=== PATIENT | female | born 1950 | race Caucasian/White ===

== ENCOUNTER → 2017-07-01 | Outpatient (CLI) | payer OTHER ==
[2017-07-01 08:01] LABS: BASOPHILS # (AUTO) 0.1 10^3/uL (0.0-0.1); BASOPHILS % (AUTO) 1 % (0-10); EOSINOPHILS # (AUTO) 0.2 10^3/uL (0.0-0.3); EOSINOPHILS % (AUTO) 2 % (0-10); LYMPHOCYTES # (AUTO) 2.3 X 10^3 (1.0-4.0); LYMPHOCYTES % (AUTO) 32 % (12-44); MEAN CORPUSCULAR HEMOGLOBIN 31 PG (25-34); MEAN CORPUSCULAR HGB CONC 34 G/DL (32-36); MEAN CORPUSCULAR VOLUME 91 FL (80-99); MEAN PLATELET VOLUME 9.8 FL (7.4-10.4); MONOCYTES # (AUTO) 0.5 X 10^3 (0.0-1.0); MONOCYTES % (AUTO) 6 % (0-12); NEUTROPHILS # (AUTO) 4.2 X 10^3 (1.8-7.8); NEUTROPHILS % (AUTO) 59 % (42-75); PLATELET COUNT 213 10^3/uL (130-400); RED BLOOD COUNT 4.89 10^6/uL (4.35-5.85); RED CELL DISTRIBUTION WIDTH 12.5 % (10.0-14.5); WHITE BLOOD COUNT 7.2 10^3/uL (4.3-11.0)
[2017-07-01 08:34] LABS: ALANINE AMINOTRANSFERASE 17 U/L (0-55); ALBUMIN 4.3 GM/DL (3.2-4.5); ANION GAP 11 MMOL/L (5-14); ASPARTATE AMINO TRANSFERASE 22 U/L (5-34); BILIRUBIN,TOTAL 1.9 MG/DL (0.1-1.0); BLOOD UREA NITROGEN 13 MG/DL (7-18); BUN/CREATININE RATIO 17; CALCIUM 9.5 MG/DL (8.5-10.1); CARBON DIOXIDE 24 MMOL/L (21-32); CHLORIDE 106 MMOL/L (98-107); CREATININE SERUM 0.78 MG/DL (0.60-1.30); GFR ESTIMATED > 60; GLUCOSE 123 MG/DL (70-105); POTASSIUM 4.2 MMOL/L (3.6-5.0); SODIUM 141 MMOL/L (135-145); TOTAL PROTEIN 7.7 GM/DL (6.4-8.2); TRIGLYCERIDES 140 MG/DL (<150)
[2017-07-01 08:35] LABS: CHOLESTEROL 194 MG/DL (< 200); DIRECT LDL 159 MG/DL (1-129); VLDL CHOLESTEROL 28 MG/DL (5-40)
[2017-07-01 08:56] LABS: THYROID STIMULATING HORMONE 1.96 UIU/ML (0.35-4.94)
== END ==
LOC: LAB 07:39
PROVIDERS: ATTEND Family Medicine
DX: I10 Essential (primary) hypertension (principal); R53.83 Other fatigue; F41.9 Anxiety disorder, unspecified
CPT/HCPCS: 36415; 80053; 80061; 84443; 85025

== ENCOUNTER 2019-09-18 05:36 | Emergency (ER) | payer OTHER ==
[~2019-09-18] VITALS: Ht 162 cm; Wt 79.0 kg
[2019-09-18] MEDS ORDERED: RT-ALBUTEROL/IPRATROPIUM 3 ML (DUONEB) VIAL INH ONE (06:30)
--- NOTE | 2019-09-18 06:38 | ED Cough/URI ---
General Chief Complaint: Cough/Cold/Flu Symptoms Stated Complaint: COUGH Nursing Triage Note: PT HAS HAD A PERSISTENT COUGH FOR TWO WEEKS, PT STATES IT IS OCCASIONALLY PRODUCTIVE WITH CLEAR SPUTUM Sepsis Screen: Possible Severe Sepsis Risk Source: patient Exam Limitations: no limitations History of Present Illness Date Seen by Provider: Sep 18, 2019 Time Seen by Provider: 06:15 Initial Comments Here with report of cough and congestion over the last 2 weeks. Apparently she was having some breathing issues while sleeping and her called EMS. Patient does not have any concerns about that. She does admit to this upper respiratory illness. She denies fever or chills. Denies nausea or vomiting. She has chronic diarrhea but this is unchanged. Timing/Duration: constant, other (2 weeks) Severity/Quality: moderate, dry cough Prior Episodes/Possible Cause: occasional episodes Modifying Factors: Improves With Rest Associated Symptoms: cough, fever/chills, nasal congestion, sore throat Allergies and Home Medications Allergies Coded Allergies: aspirin (Verified Allergy, Unknown, 09/18/19) butalbital (Verified Allergy, Unknown, 09/18/19) caffeine (Verified Allergy, Unknown, 09/18/19) codeine (Verified Allergy, Unknown, 09/18/19) Patient Home Medication List Home Medication List Reviewed: Yes Review of Systems Review of Systems Constitutional: see HPI; No chills, No fever EENTM: nose congestion; No throat pain Respiratory: cough; No dyspnea on exertion Cardiovascular: no symptoms reported Gastrointestinal: see HPI Musculoskeletal: no symptoms reported Past Lngvjcw-Nnjceb-Dbecnv Hx Past Med/Social Hx: Reviewed Nursing Past Med/Soc Hx Patient Social History Alcohol Use: Denies Use Recreational Drug Use: No Smoking Status: Current Everyday Smoker Type Used: Cigarettes Recent Foreign Travel: No Contact w/Someone Who Travel: No Recent Infectious Disease Expo: No Recent Hopitalizations: No Physical Abuse: No Sexual Abuse: No Mistreated: No Fear: No Immunizations Up To Date Tetanus Booster (TDap): Unknown PED Vaccines UTD: Yes Seasonal Allergies Seasonal Allergies: No Past Medical History Surgeries: Yes Gallbladder, Tubal Ligation Respiratory: No Cardiac: No Neurological: No : No ESTATE ATTORNEY History: Tubal Ligation Genitourinary: No Gastrointestinal: No Musculoskeletal: No Endocrine: No HEENT: No Cancer: No Psychosocial: No Integumentary: No Family Medical History Reviewed Nursing Family Hx No Pertinent Family Hx Physical Exam Vital Signs - First Documented 09/18/19 05:38 Temp 36.8 Pulse 131 Resp 22 B/P (MAP) 193/89 (123) Pulse Ox 97 O2 Delivery Room Air Capillary Refill : Less Than 3 Seconds Height: '" Weight: lbs. oz. kg; 30.00 BMI Method: General Appearance: WD/WN, no apparent distress HEENT: PERRL/EOMI, pharynx normal Neck: full range of motion, supple Respiratory: no accessory muscle use, wheezing (few scattered wheezes) Cardiovascular: regular rate, rhythm, no murmur Gastrointestinal: non tender, soft Extremities: non-tender, normal inspection Neurologic/Psychiatric: alert, oriented x 3 Skin: normal color, warm/dry Progress/Results/Core Measures Suspected Sepsis Recent Fever Within 48 Hours: No Infection Criteria Present: Suspected New Infection New/Unexplained Altered Menta: No Sepsis Screen: Possible Severe Sepsis Risk SIRS Temperature: Pulse: 131 Respiratory Rate: 22 Blood Pressure 193 /89 Mean: 123 Results/Orders Micro Results Microbiology 09/18/19 Influenza Types A,B Antigen ([facility]) - Final, Complete My Orders Orders - IRENE COOMBS MD Albuterol/Ipra Inhalation Soln (Duoneb I (09/18/19 06:30) Chest Pa/Lat (2 View) (09/18/19 06:24) Svn Small Volume Nebulizer (09/18/19 06:24) Doxycycline 100mg Po (09/18/19 07:32) Prednisone Tablet (Deltasone Tablet) (09/18/19 07:45) Rx-Albuterol Inhaler (Rx-Proair) (09/18/19 07:45) Medications Given in ED Current Medications Medications Dose Ordered Sig/Liat Route Start Time Stop Time Status Last Admin Dose Admin Albuterol/ Ipratropium 3 ml ONCE ONCE INH 09/18/19 06:30 09/18/19 06:31 DC 09/18/19 06:34 3 ML Vital Signs/I&O 09/18/19 09/18/19 09/18/19 05:38 05:41 06:34 Temp 36.8 Pulse 131 Resp 22 B/P (MAP) 193/89 (123) Pulse Ox 97 97 O2 Delivery Room Air Room Air Room Air Capillary Refill : Less Than 3 Seconds Blood Pressure Mean: 123 POS Progress Note : Progress Note Seen and evaluated. Influenza screen. Duo neb ordered and two-view chest x-ray ordered. Influenza is negative. Slightly better after DuoNeb. Monitor patient. 0730: Chest x-ray negative. We will initiate doxycycline and prednisone. Patient would benefit from albuterol inhaler but has never had teaching on these so we will go ahead give her one of those and teach her how to use it. Discharged home with return precautions. Patient verbalize understanding instructions and agreem ent with plan. Diagnostic Imaging Diagonstic Imaging: Xray Plain Films/CT/US/NM/MRI: chest Comments [facility]. POS [place], [place] POS NAME: LUIS ENRIQUE ARROYO [facility] REC#: [id number] PT STATUS: REG ER : 1950 PHYSICIAN: IRENE COOMBS MD ADMIT DATE: 09/18/19/ER Signed POSDate of Exam:09/18/19 CHEST PA/LAT (2 VIEW) CHEST PA/LAT (2 VIEW) Indication: Cough for 2 weeks Comparison: None available. Findings: No pulmonary mass or consolidation. No pleural effusion or pneumothorax. Normal heart size and mediastinal contours. Impression: No acute cardiopulmonary process. Dictated by: Dictated on workstation # [id number] Dict: 09/18/19650 Trans: 09/18/19650 [facility] [id number] Interpreted by: MICHAEL LANCE MD Electronically signed by: MICHAEL LANCE MD 09/18/19650 Departure Impression Primary Impression: Bronchitis Additional Impression: Sinusitis, acute Qualified Codes: J01.90 - Acute sinusitis, unspecified Disposition: HOME, SELF-CARE Condition: Stable Departure-Patient Inst. Decision time for Depature: 07:35 Referrals: KAYODE HILLIARD DO (PCP/Family) Primary Care Physician Patient Instructions: Acute Bronchitis, Adult (DC), Sinusitis, Adult (DC) Add. Discharge Instructions: All discharge instructions reviewed with patient and/or family. Voiced understanding. Use inhaler 2 puffs every 4 hours as needed for wheezing. Take medications as directed. Follow-up with your doctor this week for recheck and further evaluation. Return for worse pain, fever, vomiting, weakness, breathing problems or other concerns as needed. Scripts Prednisone (Prednisone) 20 Mg Tab 40 MG PO DAILY, #8 TAB 0 Refills Prov: IRENE COOMBS MD 09/18/19 Doxycycline Hyclate (Doxycycline Hyclate) 100 Mg Tablet 100 MG PO BID, #20 TAB 0 Refills Prov: IRENE COOMBS MD 09/18/19 IRENE COOMBS MD Sep 18, 2019 06:38 POS
--- NOTE | 2019-09-18 06:53 | Diagnostic Imaging Report ---
CHEST PA/LAT (2 VIEW) Indication: Cough for 2 weeks Comparison: None available. Findings: No pulmonary mass or consolidation. No pleural effusion or pneumothorax. Normal heart size and mediastinal contours. Impression: No acute cardiopulmonary process. Dictated by: Dictated on workstation # [id number]
--- NOTE | 2019-09-18 07:11 | NUR ---
PT RESTING IN BED COUGHING INTERMITTENTLY. NO CO
[2019-09-18] MEDS ORDERED: DOXYCYCLINE 100 MG (VIBRAMYCIN) TABLET PO STA (07:32)
[2019-09-18] MEDS ORDERED: PRD20T PO (07:38)
[2019-09-18] MEDS ORDERED: DOXY100T2 PO (07:38)
[2019-09-18] MEDS ORDERED: predniSONE 20 MG TAB PO ONE (07:45)
[2019-09-18] MEDS ORDERED: RX-ALBUTEROL INHALER (PROAIR) 8.5 GM IH PRN (07:45)
[2019-09-18 08:18] VITALS: BP 141/76
== END 2019-09-18 08:18 | disposition home or self-care (01) ==
LOC: EDUNIT# 05:36 → ER 05:38
DX: J40 Bronchitis, not specified as acute or chronic (principal); J01.90 Acute sinusitis, unspecified; F17.210 Nicotine dependence, cigarettes, uncomplicated; Z88.6 Allergy status to analgesic agent; Z88.8 Allergy status to other drugs, medicaments and biological substances; Z88.5 Allergy status to narcotic agent; Z98.51 Tubal ligation status
CPT/HCPCS: 71046; 87804; 94640